=== PATIENT | female | born 1960 | race Caucasian/White ===

== ENCOUNTER 2020-03-19 07:31 | Inpatient (IN) | payer BC, MEDICAID ==
[~2020-03-19] VITALS: Ht 149.9 cm; Wt 62.5 kg
[~2020-03-19 07:31] MED LIST: ASPI-231 PO; ATEN-60 PO; CARI350T22 PO; DIAZ10TA PO; DIPH25CA2 PO; DOCU-55 PO; FENT50DI2 TD; HAL1T PO; LEV50T PO; LORA0.5T20 GT; MORP30CA16 PO; NITR1SPR TL; NOR10T PO; PRAV20TA3 PO; ROPI2TAB31 PO; SERT-274 PO; TRAZ100T3 PO; ZOLP10TA6 PO
[2020-03-19] MEDS ORDERED: SODIUM CHLORIDE 0.9% 1,000 ML IV ONE (07:44)
[2020-03-19] MEDS ORDERED: AZITHROMYCIN 500MG/ 250ML 250 ML IV ONE (07:45)
[2020-03-19] MEDS ORDERED: cefTRIAXone 1GM/50ML D5W 50 ML IV ONE (07:45)
[2020-03-19 08:22] LABS: Urine WBC None Seen /hpf (0 - 5)
[2020-03-19] MEDS ORDERED: MORPHINE SULF INJ 2 MG/ML SYRINGE 1ML ONE (08:24)
[2020-03-19] MEDS ORDERED: ONDANSETRON HCL 4 MG/2 ML VIAL ONE (08:24)
[2020-03-19] MEDS ORDERED: MORPHINE SULF INJ 2 MG/ML SYRINGE 1ML IV ONE (08:30)
[2020-03-19] MEDS ORDERED: ONDANSETRON HCL 4 MG/2 ML VIAL IV ONE (08:30)
[2020-03-19 08:35] LABS: Basophils # (auto) 0.1 10 ^3/uL (0-0.2); Basophils % (auto) 0.6 % (0.0-2.0); Eosinophils # (auto) 0.1 10 ^3/uL (0-0.8); Hemoglobin 11.3 g/dL (12.2-16.2); Lymphocytes # (auto) 1.2 10 ^3/uL (0.4-5.4); Monocytes # (auto) 0.3 10 ^3/uL (0-1.3)
[2020-03-19 08:36] LABS: Eosinophils % (auto) 1.3 % (0.0-7.0); Hematocrit 36.9 % (36.0-46.0); Mean Corpuscular Hgb Conc. 30.6 g/dL (32.0-36.0); Mean Corpuscular Volume 88.4 fL (80.0-100.0); Monocytes % (auto) 3.9 % (0.0-12.0); Neutrophils # (auto) 6.9 10 ^3/uL (1.6-8.6); Neutrophils % (auto) 80.2 % (37.0-80.0); Nucleated Red Blood Cells % 0.1 %; Platelet Count (auto) 182 10^3/uL (140-450); Red Blood Cells 4.17 10^6/uL (4.0-5.20); Red Cell Distribution Width 15.7 % (11.8-14.3); White Blood Cell 8.6 10^3/uL (4.4-10.8)
[2020-03-19 08:37] LABS: Urine Bacteria FEW /hpf (None Seen); Urine Blood Negative /uL (Negative); Urine Specific Gravity 1.006 (1.001-1.035)
[2020-03-19 08:39] LABS: INR 0.96 (0.9-1.15); Partial Thromboplastin Time 25.1 sec (23.64-32.05)
[2020-03-19 08:44] LABS: Blood Urea Nitrogen 11 mg/dL (7-18); Calcium 8.8 mg/dL (8.5-10.1); Chloride 97 mmol/L (98-107); Glucose 92 mg/dL (74-106); Potassium 4.1 mmol/L (3.5-5.1); Sodium 138 mmol/L (136-145)
[2020-03-19 08:49] LABS: Alanine Aminotransferase 6 U/L (13-56); Alkaline Phosphatase 95 U/L (45-117); Aspartate Aminotransferase 9 U/L (15-37); BUN/Creatinine Ratio 13.8; Bilirubin, Total 0.4 mg/dL (0.2-1.0); GFR African American 93 mL/min; GFR Non-African American 77 mL/min; Lactate Dehydrogenase 107 U/L (84-246)
[2020-03-19 08:55] LABS: Anion Gap -1 (5-15); Carbon Dioxide 42 mmol/L (21-32)
[2020-03-19] MEDS ORDERED: NITROGLYCERIN 0.4 MG SL TAB SL PRN (11:00)
[2020-03-19] MEDS ORDERED: MORPHINE SULF INJ 2 MG/ML SYRINGE 1ML IV PRN (11:00)
[2020-03-19] MEDS: IPRATROPIUM BROM 0.5 MG/2.5ML INH SOL NEB SCH ×3 (14:00→22:32)
[2020-03-19] MEDS: CARISOPRODOL 350 MG TAB PO SCH ×2 (14:00→22:16)
[2020-03-19] MEDS: ALBUTEROL SULF 2.5 MG/0.5ML(0.5%) NEB SOLN NEB SCH ×3 (14:00→22:32)
[2020-03-19] MEDS ORDERED: IOHEXOL 350 MG/ML 100ML IJ ONE (18:09)
[2020-03-19 18:15] VITALS: BP 92/44
[2020-03-19 20:40] VITALS: BP 98/53
--- NOTE | 2020-03-19 20:40 | NUR ---
Telemetry admit from ER JUDY SYLEEN admitted to Telemetry unit after SBAR received. Patient oriented to WILLA NAVAS, RN primary RN, unit, room, bed, and unit policies regarding patient care and visiting hours. Patient now on continuous telemetry monitoring, tele box # 17 and telemetry reading on arrival to unit is SR-[id number]'s. Patient placed on bedside 3L oxygen, weighed by bedscale and encouraged to call if they need something. All questions and concerns addressed, patient verbalized understanding. Note:
--- NOTE | 2020-03-19 20:50 | NUR ---
Home Medications, Pharmacy and Next of Kin Patient does not know her home medications nor pharmacy. Instructed patient to call family member tomorrow to obtain a list of the medications and pharmacy name. Patient does not have a next of kin, reminded patient to set up a password with family tomorrow.
[2020-03-19 22:00] VITALS: BP 98/53
[2020-03-19] MEDS: ROPINIROLE HYDROCHLORIDE 2 MG PO SCH (22:00)
[2020-03-19] MEDS: PRAVASTATIN SODIUM 20 MG TAB PO SCH (22:16)
[2020-03-19] MEDS: methylPREDNISolone SOD SUCC 40 MG/ML VL IV SCH (22:16)
[2020-03-19] MEDS: HYDROcodone-ACET 10/325MG TAB PO PRN (22:17)
[2020-03-19 22:56] VITALS: BP 91/44
[2020-03-20] MEDS: ALBUTEROL SULF 2.5 MG/0.5ML(0.5%) NEB SOLN NEB SCH ×6 (02:39→22:00)
[2020-03-20] MEDS: IPRATROPIUM BROM 0.5 MG/2.5ML INH SOL NEB SCH ×6 (02:39→22:00)
[2020-03-20 05:00] VITALS: BP 101/62
[2020-03-20] MEDS: CARISOPRODOL 350 MG TAB PO SCH ×3 (05:55→22:10)
[2020-03-20] MEDS: LEVOTHYROXINE SODIUM 50 MCG TAB PO SCH (05:55)
[2020-03-20 06:43] LABS: Basophils # (auto) 0 10 ^3/uL (0-0.2); Basophils % (auto) 0.1 % (0.0-2.0); Eosinophils # (auto) 0 10 ^3/uL (0-0.8); Hemoglobin 11.2 g/dL (12.2-16.2); Lymphocytes # (auto) 0.2 10 ^3/uL (0.4-5.4); Lymphocytes % (auto) 3.1 % (10.0-50.0); Mean Corpuscular Hemoglobin 27.6 pg (28.0-32.0); Mean Corpuscular Volume 89.2 fL (80.0-100.0); Monocytes # (auto) 0 10 ^3/uL (0-1.3); Monocytes % (auto) 0.6 % (0.0-12.0); Neutrophils # (auto) 7.6 10 ^3/uL (1.6-8.6); Neutrophils % (auto) 96.2 % (37.0-80.0); Platelet Count (auto) 156 10^3/uL (140-450); Red Blood Cells 4.04 10^6/uL (4.0-5.20); Red Cell Distribution Width 15.8 % (11.8-14.3); White Blood Cell 7.9 10^3/uL (4.4-10.8)
[2020-03-20 07:14] LABS: Potassium 4.5 mmol/L (3.5-5.1)
[2020-03-20 07:16] LABS: BUN/Creatinine Ratio 15.6; Calcium 8.9 mg/dL (8.5-10.1); Magnesium 2.5 mg/dL (1.6-2.6)
--- NOTE | 2020-03-20 07:20 | NUR ---
Respiratory note: TOOK PT OFF BIPAP AND PLACED ON 3 L NC. SPO2 93% TO EAT BREAKFAST. PT IS ALERT, ORIENTED, AND RESPONDS APPROPRIATELY TO VERBAL COMMANDS. WILL PLACE PT BACK ON BIPAP AFTER BREAKFAST.
--- NOTE | 2020-03-20 07:30 | NUR ---
Closing Note Endorsed care to dayshift nurse.
--- NOTE | 2020-03-20 07:30 | NUR ---
ROUNDS PT SITTING IN BED AWAKE A&O WITH NO C/O PAIN. RT REMOVED BPAP FOR BREAKFAST, PT PLACED ON NC. BED IN LOW POSITION, TELE IN PLACE AND CALL LIGHT IN REACH.
--- NOTE | 2020-03-20 08:15 | NUR ---
Nutrition Note: Pt consult for low BS, noted. pt with intact skin and BS 15 mod risk per RN doc. and will F/U as needed
[2020-03-20] MEDS: methylPREDNISolone SOD SUCC 40 MG/ML VL IV SCH ×2 (09:34→22:10)
[2020-03-20] MEDS: SERTRALINE HCL 50 MG TAB PO SCH (09:34)
[2020-03-20] MEDS: ASPirin-EC 81 mg tab PO SCH (09:35)
[2020-03-20] MEDS: CHOLECALCIFEROL (VITD3) 1,000UNIT=25mCg TAB PO SCH (09:35)
[2020-03-20] MEDS: ATENOLOL 25 MG TAB PO SCH (09:36)
[2020-03-20] MEDS: ZINC SULFATE 220mg CAP or TAB PO SCH (09:37)
[2020-03-20 09:39] VITALS: BP 91/53
[2020-03-20] MEDS ORDERED: AZITHROMYCIN 500MG/ 250ML 250 ML IV ONE (10:00)
[2020-03-20] MEDS ORDERED: ASCORBIC ACID 500 MG TAB PO ONE (10:00)
--- NOTE | 2020-03-20 10:22 | NUR ---
DR ROBERTO AT BEDSIDE SPEAKING WITH PT RE: HISTORY AND CONDITION
[2020-03-20 13:24] VITALS: BP 89/48
--- NOTE | 2020-03-20 14:00 | NUR ---
Respiratory note: PT TAKEN OFF BIPAP AND PLACED ON 3 L NC TO EAT LUNCH. SPO2 94%. RN DARLENE INFORMED OF CHANGES.
--- NOTE | 2020-03-20 14:09 | NUR ---
Assessment Patient is a 60-year old female who is alert and oriented. Prior admission patient lived home with family and function with assistance. Patient will return home to her prior living arrangement post discharge and she will need transportation to be arranged with [facility]. Patient informed me she has a wheelchair and home O2 for home use. Advised patient there is a Social Service consult for safety evaluation. Informed patient clinical information will be faxed to [facility]. Informed patient she has a right to participate in all discharge planning. Patient verbalized understanding and agreed to discharge plan. Per Chiara with [facility] patient has been accepted and service to start within 24-48hrs upon d/c day. Placed call to Mowing Machine Operator Diana with [facility] advising her patient has orders for home health and [facility] has accepted. Addendum: 03/20/20 at 1409 by MARCIN MAURICE Amended: Links added. Addendum: 03/20/20 at 1435 by MARCIN MAURICE obtain authorization from [facility] for [facility] [id number]
--- NOTE | 2020-03-20 14:52 | NUR ---
Respiratory note: PT IS NOT FINISHED WITH HER LUNCH. WILL CONTINUE BIPAP WHEN PT HAS COMPLETED HER MEAL. GERMANIA REID.
[2020-03-20] MEDS: ENOXAPARIN SOD 40 MG/0.4 ML SYRINGE SC SCH (16:09)
[2020-03-20 16:41] VITALS: BP 104/53
--- NOTE | 2020-03-20 17:30 | NUR ---
IV STARTED PT IV TO LEFT AC WAS PAINFUL AND LEAKING, IV REMOVED WITH CATHETER INTACT IV RESTARTED TO RIGHT UPPER ARM #22
--- NOTE | 2020-03-20 19:05 | NUR ---
RT NOTE: PT REMOVED FROM BIPAP TO EAT DINNER. PT PLACED ON 3LPM NC AND NO DISTRESS NOTED. WILL PLACE BACK ON BIPAP WHEN FINISHED EATING.
[2020-03-20 20:00] VITALS: BP 96/49
--- NOTE | 2020-03-20 20:00 | NUR ---
Opening Shift Note Assumed care of patient, awake and alert. No S/S of distress/SOB or pain. Patient eating dinner. Instructed on POC and to call for assist PRN, will continue to monitor for changes Q1hr and PRN.
--- NOTE | 2020-03-20 20:15 | NUR ---
RT NOTE: PT STILL EATING AND WANTS TO FINISH BEFORE BIPAP GOES BACK ON. 3LPM NC SPO2 94%
--- NOTE | 2020-03-20 21:00 | NUR ---
RT NOTE: ATTEMPTED TO PLACE PT BACK ON BIPAP PT STATED SHE IS STILL EATING AND NOT READY. PT ON 3LPM NC SPO2 95% WITH NO DISTRESS.
[2020-03-20 22:00] VITALS: BP 96/49
[2020-03-20] MEDS: ROPINIROLE HYDROCHLORIDE 2 MG PO SCH (22:00)
[2020-03-20] MEDS: PRAVASTATIN SODIUM 20 MG TAB PO SCH (22:10)
[2020-03-21] VITALS (7 sets, daily range): BP systolic 101–108; BP diastolic 52–74
[2020-03-21] MEDS: ALBUTEROL SULF 2.5 MG/0.5ML(0.5%) NEB SOLN NEB SCH ×6 (00:13→21:59)
[2020-03-21] MEDS: IPRATROPIUM BROM 0.5 MG/2.5ML INH SOL NEB SCH ×6 (00:13→21:59)
[2020-03-21] MEDS: HYDROcodone-ACET 10/325MG TAB PO PRN ×2 (00:41→21:52)
--- NOTE | 2020-03-21 00:41 | NUR ---
Pain Patient c/o pain 10/10 in generalized body. Pain medication administered.
--- NOTE | 2020-03-21 01:00 | NUR ---
BM Patient had a large green, soft bm, patient cleaned and changed.
--- NOTE | 2020-03-21 01:41 | NUR ---
RE Pain Patient currently sleeping, no signs of pain or distress.
--- NOTE | 2020-03-21 02:34 | NUR ---
Pain Patient c/o of pain 08/18. Patient stated to have restless leg syndrome and has not received her usual medication since she been hospitalized. [place] was administered and did not help with the pain. Page hospitalist, waiting to call back.
[2020-03-21] MEDS ORDERED: HYDROcodone-ACET 5/325MG TAB PO ONE (03:00)
[2020-03-21] MEDS: LEVOTHYROXINE SODIUM 50 MCG TAB PO SCH (05:59)
[2020-03-21] MEDS: CARISOPRODOL 350 MG TAB PO SCH ×3 (05:59→21:52)
[2020-03-21 06:53] LABS: Basophils # (auto) 0 10 ^3/uL (0-0.2); Eosinophils # (auto) 0 10 ^3/uL (0-0.8); Hematocrit 33.2 % (36.0-46.0); Hemoglobin 10.3 g/dL (12.2-16.2); Lymphocytes # (auto) 0.3 10 ^3/uL (0.4-5.4); Monocytes # (auto) 0.1 10 ^3/uL (0-1.3); White Blood Cell 11.2 10^3/uL (4.4-10.8)
[2020-03-21 06:55] LABS: Basophils % (auto) 0.1 % (0.0-2.0); Eosinophils % (auto) 0.1 % (0.0-7.0); Lymphocytes % (auto) 2.9 % (10.0-50.0); Mean Corpuscular Hemoglobin 27.3 pg (28.0-32.0); Mean Corpuscular Volume 88.1 fL (80.0-100.0); Monocytes % (auto) 1.3 % (0.0-12.0); Neutrophils # (auto) 10.7 10 ^3/uL (1.6-8.6); Neutrophils % (auto) 95.6 % (37.0-80.0); Platelet Count (auto) 171 10^3/uL (140-450); Red Blood Cells 3.77 10^6/uL (4.0-5.20); Red Cell Distribution Width 15.8 % (11.8-14.3)
[2020-03-21 07:12] LABS: Calcium 8.8 mg/dL (8.5-10.1); Magnesium 2.2 mg/dL (1.6-2.6); Potassium 4.3 mmol/L (3.5-5.1)
--- NOTE | 2020-03-21 07:30 | NUR ---
Closing Note Endorsed care to dayshift nurse.
--- NOTE | 2020-03-21 08:04 | NUR ---
Respiratory note: PT RECEIVED FROM SOFTWARE PACKAGING ENGINEER ON BIPAP B-3 PLUGGED INTO RED OUTLET. ALL BIPAP ALARMS ARE AUDIBLE, AND FUNCTIONING. PT IS WEARING A NASAL SIZE B MASK WITH NO SKIN BREAKDOWN NOTED. BS ARE CLEAR/DIMINISHED BILATERALLY. MEDNEB TX GIVEN INLINE, WITH NO ADVERSE EFFECTS NOTED. PT IS TOLERATING BIPAP WELL. WILL CONTINUE TO MONITOR PT. PT TAKEN OFF OF BIPAP, AND PLACED ON 3L NC. SPO2 98%, HR 87, RR 16, BS CLEAR BILATERALLY. PT TOLERATING CHANGE WELL. WILL CONTINUE TO MONITOR PT.
[2020-03-21] MEDS: ATENOLOL 25 MG TAB PO SCH (10:00)
--- NOTE | 2020-03-21 10:00 | NUR ---
PT C/O PAIN BUT REFUSED PAIN MEDICATION BECAUSE IT DOESN'T WORK. STATED SHE NEEDS HER ROPINIROLE.
--- NOTE | 2020-03-21 10:00 | NUR ---
PT REFUSED TO TAKE ZOLOFT AT THIS TIME. SHE STATED THAT SHE TAKES THEM AT 6 PM.
[2020-03-21] MEDS: ASPirin-EC 81 mg tab PO SCH (10:27)
[2020-03-21] MEDS: ZINC SULFATE 220mg CAP or TAB PO SCH (10:27)
[2020-03-21] MEDS: methylPREDNISolone SOD SUCC 40 MG/ML VL IV SCH ×2 (10:27→21:52)
[2020-03-21] MEDS: ENOXAPARIN SOD 40 MG/0.4 ML SYRINGE SC SCH (10:29)
[2020-03-21] MEDS: CHOLECALCIFEROL (VITD3) 1,000UNIT=25mCg TAB PO SCH (10:29)
--- NOTE | 2020-03-21 11:00 | NUR ---
MESSAGE LEFT FOR PT'S NEXT OF KIN, COREY, REGARDING PT'S HOME MEDICATION. WAITING FOR CALLBACK
--- NOTE | 2020-03-21 13:25 | NUR ---
DR GRIGGS AT BEDSIDE. MADE AWARE THAT PT'S OWN MEDICATION, ROPINOROLE, IS NOT AVAILABLE. PER PT, SHE HAD THEM WHEN SHE CAME ON THE AMBULANCE BUT THEY COULDN'T FIND IT WHEN SHE CAME TO THE ER. PT STATED IT WAS WRAPPED IN A CARRIE AND WAS PROBABLY THROWN AWAY BY THE EMT STAFF. Addendum: 03/21/20 at 1328 by Barbara Funes RN NOTE WAS FOR 1100 TODAY.
--- NOTE | 2020-03-21 14:00 | NUR ---
PT C/O PAIN BUT REFUSED PAIN MEDICATION BECAUSE IT DOESN'T WORK. GIVEN SOMA ORDERED.
--- NOTE | 2020-03-21 15:30 | NUR ---
ATTEMPTS TO CONTACT A NEXT OF KIN HAD BEEN UNSUCCESSFUL. I WAS ABLE TO SPEAK TO SOMEONE USING THE NEXT OF KIN'S RECORDED PHONE NUMBER AND I WAS INFORMED THAT IT IS A WRONG NUMBER. PER PT, IT'S THE SAME NUMBER SHE HAVE. ALSO, PER PT, HER DAUGHTER LITZY DOESN'T ANSWER HER PHONE.
--- NOTE | 2020-03-21 15:47 | NUR ---
CONTACTED PT'S PHARMACY PROVIDED BY PATIENT. SPOKE TO PHARMACIST JAI FROM [facility]. INFORMED PHARMACIST OF PT'S HOME MEDICATIONS SITUATION AND I ASKED IF HER ROPINOROLE IS DUE FOR REFILL. PER JAI, THEY WILL CALL DR MARTINEZ, PT'S PRIMARY DOCTOR AND GET AN ORDER TO HAVE IT REFILLED. PER JAI, HE WILL HAVE IT READY TODAY. I INFORMED JAI THAT I WILL TRY TO CONTACT A FAMILY MEMBER WHO CAN PICK IT UP AND BRING IT OVER TO THE HOSPITAL.
--- NOTE | 2020-03-21 16:30 | NUR ---
RECEIVED A CALL FROM PT'S DAUGHTER, LITZY. LITZY IS UPDATED ON PT'S STATUS AND PLAN OF CARE. PER LITZY, THE PT HAVE MEDICATIONS AT HOME AND SHE WILL DROP OFF THE ROPINIROLE AT THE HOSPITAL TODAY.
[2020-03-21] MEDS ORDERED: LORazepam 2MG/ML-1ML VIAL IV PRN (18:15)
[2020-03-21] MEDS: SERTRALINE HCL 50 MG TAB PO SCH (18:51)
[2020-03-21] MEDS: ROPINIROLE HYDROCHLORIDE 2 MG PO SCH (18:51)
--- NOTE | 2020-03-21 18:54 | NUR ---
POM ROPINIROLE RECEIVED FROM PT'S DAUGHTER. PER PT, SHE NEEDS TO TAKE ONE NOW SINCE SHE HASN'T HAD IT SINCE ADMISSION. MEDICATION GIVEN.
--- NOTE | 2020-03-21 19:20 | NUR ---
Opening Shift Note Assumed care of patient, awake and alert. No S/S of distress/SOB or pain. Patient eating dinner at the moment. Instructed on POC and to call for assist PRN, will continue to monitor for changes Q1hr and PRN.
[2020-03-21 19:28] LABS: % Iron Saturation 10.8 % (15-50)
[2020-03-21 19:40] LABS: Ferritin 74.1 ng/mL (10-322)
[2020-03-21 19:41] LABS: Folate (Folic Acid) 6.73 ng/mL (5.38-24)
--- NOTE | 2020-03-21 21:50 | NUR ---
Pain Patient c/o pain 10/10 throughout her body, pain medication administered.
[2020-03-21] MEDS: PRAVASTATIN SODIUM 20 MG TAB PO SCH (21:52)
--- NOTE | 2020-03-21 22:52 | NUR ---
RE Pain Patient is currently sleeping
[2020-03-22] MEDS: ALBUTEROL SULF 2.5 MG/0.5ML(0.5%) NEB SOLN NEB SCH ×6 (02:33→23:05)
[2020-03-22] MEDS: IPRATROPIUM BROM 0.5 MG/2.5ML INH SOL NEB SCH ×6 (02:33→23:05)
[2020-03-22 05:56] VITALS: BP 130/63
[2020-03-22] MEDS: CARISOPRODOL 350 MG TAB PO SCH ×3 (06:02→21:59)
[2020-03-22] MEDS: LEVOTHYROXINE SODIUM 50 MCG TAB PO SCH (06:02)
[2020-03-22 06:27] LABS: Basophils # (auto) 0 10 ^3/uL (0-0.2); Basophils % (auto) 0.1 % (0.0-2.0); Eosinophils # (auto) 0 10 ^3/uL (0-0.8); Hematocrit 33.6 % (36.0-46.0); Hemoglobin 10.7 g/dL (12.2-16.2); Lymphocytes # (auto) 0.3 10 ^3/uL (0.4-5.4); Lymphocytes % (auto) 3.1 % (10.0-50.0); Mean Corpuscular Hemoglobin 27.7 pg (28.0-32.0); Mean Corpuscular Hgb Conc. 31.7 g/dL (32.0-36.0); Mean Corpuscular Volume 87.4 fL (80.0-100.0); Monocytes # (auto) 0.2 10 ^3/uL (0-1.3); Neutrophils # (auto) 8.9 10 ^3/uL (1.6-8.6); Neutrophils % (auto) 94.8 % (37.0-80.0); Platelet Count (auto) 184 10^3/uL (140-450); Red Blood Cells 3.85 10^6/uL (4.0-5.20); Red Cell Distribution Width 15.9 % (11.8-14.3); White Blood Cell 9.4 10^3/uL (4.4-10.8)
[2020-03-22 06:43] LABS: BUN/Creatinine Ratio 25.6; Calcium 8.6 mg/dL (8.5-10.1); Magnesium 2.4 mg/dL (1.6-2.6); Potassium 4.4 mmol/L (3.5-5.1)
--- NOTE | 2020-03-22 07:16 | NUR ---
Closing Note Endorsed care to dayshift nurse.
[2020-03-22 08:00] VITALS: BP 112/64
--- NOTE | 2020-03-22 08:00 | NUR ---
OPENING SHIFT NOTE ASSUMED CARE OF PATIENT AWAKE AND ALERT. NO S/S OF DISTRESS NOTED OR SOB. PATIENT IS ON 2L NC PER MD ORDER WITH AN O2 SATURATION OF 95%. PATIENT UPDATED ON POC FOR THE DAY AND ALL QUESTIONS ANSWERED. BED IS IN LOWEST, LOCKED POSITION WITH SIDE RAILS UP X2 AND CALL LIGHT WITHIN REACH. WILL CONTINUE TO MONITOR Q1H AND PRN.
[2020-03-22] MEDS: methylPREDNISolone SOD SUCC 40 MG/ML VL IV SCH ×2 (09:14→21:59)
[2020-03-22] MEDS: ENOXAPARIN SOD 40 MG/0.4 ML SYRINGE SC SCH (09:14)
[2020-03-22] MEDS: CHOLECALCIFEROL (VITD3) 1,000UNIT=25mCg TAB PO SCH (09:15)
[2020-03-22] MEDS: ASPirin-EC 81 mg tab PO SCH (09:15)
[2020-03-22] MEDS: HYDROcodone-ACET 10/325MG TAB PO PRN (09:15)
[2020-03-22] MEDS: ATENOLOL 25 MG TAB PO SCH (09:15)
[2020-03-22] MEDS: ZINC SULFATE 220mg CAP or TAB PO SCH (09:16)
--- NOTE | 2020-03-22 10:15 | NUR ---
MD AT BEDSIDE DR GRIGGS AT BEDSIDE UPDATED PATIENT ON POC. PATIENT VERBALIZED UNDERSTANDING
[2020-03-22] MEDS ORDERED: MORPHINE SULF 15mg ER tab PO PRN (10:30)
[2020-03-22] MEDS: MORPHINE SULF 15mg ER tab PO SCH ×2 (11:44→22:00)
[2020-03-22 12:00] VITALS: BP 125/80
--- NOTE | 2020-03-22 12:00 | NUR ---
Nutrition Assessment Notes Please refer to link for full assessment notes. Est Energy needs: 2176-7521 kcals (20-23 kcal/kgBW) Est Protein needs: 49-61 gms/day (0.8-1.0 gm/kgBW) Will continue to monitor and reassess prn. Addendum: 03/22/20 at [address] Amended: Links added.
--- NOTE | 2020-03-22 13:50 | NUR ---
MRI PATIENT TAKEN DOWN TO MRI VIA STRETCHER CONNECTED TO 2L NC. NO INJURY OR DISTRESS NOTED AT TIME OF DEPARTURE.
[2020-03-22 15:44] VITALS: BP 125/80
[2020-03-22 16:57] VITALS: BP 129/71
--- NOTE | 2020-03-22 17:19 | NUR ---
FAMILY FOUND PATIENT IN HER ROOM CRYING. SHE STATES HER SON CALLED HER AND INFORMED HER SHE NEEDS TO GO TO REHAB AND LEARN HOW TO WALK AGAIN BEFORE SHE CAN COME HOME AND THAT HOSPICE IS NOT AN OPTION. I CALLED CHEY AT TO SPEAK WITH HIM ABOUT THIS. ACCORDING TO CHEY THEY HAVE NO WAY OF TAKING CARE OF HER 01/06 AND HOSPICE IS NOT ENOUGH HELP. INFORMED HIM THAT PATIENT HAS A RIGHT TO RETURN TO HER HOME IF SHE WANTS. WILL NOTIFY MD THAT PATIENT AND FAMILY WOULD LIKE TO REDISCUSS DISCHARGE OPTIONS.
[2020-03-22] MEDS: SERTRALINE HCL 50 MG TAB PO SCH (18:04)
--- NOTE | 2020-03-22 19:19 | NUR ---
RT NOTE PT WAS SEEN BY RT FOR HHN TX. PT TOLERATES WELL VIA MASK. NO ADVERSE REACTION NOTED. PT HAS A BIPAP AT BEDSIDE. PT IS ON BEDSIDE POX. CONT ORDERED Addendum: 03/22/20 at 1920 by Kelly Poon RT Amended: Links added.
[2020-03-22] MEDS ORDERED: LORazepam 2MG/ML-1ML VIAL IV PRN (20:15)
[2020-03-22] MEDS: HALOPERIDOL 1 MG TAB PO PRN (20:53)
[2020-03-22] MEDS: PRAVASTATIN SODIUM 20 MG TAB PO SCH (21:59)
[2020-03-22] MEDS: ROPINIROLE HYDROCHLORIDE 2 MG PO SCH (21:59)
[2020-03-22 22:00] VITALS: BP 138/72
--- NOTE | 2020-03-22 23:05 | NUR ---
RT NOTE PT WAS SEEN BY RT FOR HHN TX. PT TOLERATES WELL VIA MASK. NO ADVERSE REACTION NOTED. CONT ORDERED Addendum: 03/22/20 at 2315 by Kelly Poon RT Amended: Links added.
--- NOTE | 2020-03-22 23:25 | NUR ---
IV insertion IV access obtained, via clean sterile technique by inserting 22 gauge catheter at right hand after 1 attempt. IV secured properly. No trauma to site. Patient tolerated procedure well.
[2020-03-23] MEDS: ALBUTEROL SULF 2.5 MG/0.5ML(0.5%) NEB SOLN NEB SCH ×6 (02:37→22:18)
[2020-03-23] MEDS: IPRATROPIUM BROM 0.5 MG/2.5ML INH SOL NEB SCH ×6 (02:37→22:18)
--- NOTE | 2020-03-23 02:39 | NUR ---
RT NOTE PT WAS SEEN BY RT FOR HHN TX. PT TOLERATES WELL VIA MASK. NO ADVERSE REACTION NOTED .CONT ORDERED Addendum: 03/23/20 at 0240 by Kelly Poon RT Amended: Links added.
[2020-03-23] MEDS: HALOPERIDOL 1 MG TAB PO PRN (02:52)
[2020-03-23] MEDS: HYDROcodone-ACET 10/325MG TAB PO PRN (04:15)
[2020-03-23 05:00] VITALS: BP 106/65
[2020-03-23] MEDS: CARISOPRODOL 350 MG TAB PO SCH ×3 (06:09→21:31)
[2020-03-23] MEDS: LEVOTHYROXINE SODIUM 50 MCG TAB PO SCH (06:40)
--- NOTE | 2020-03-23 07:30 | NUR ---
Opening Shift Note Report received and assumed care of patient, awake and alert. No S/S of distress/SOB,c/o chronic pain but explain to patient not due for pain medication at this time.Noted to have restless legs,Patient eating breakfast. Instructed on POC and nursing routines,call light within reach patient reminded instructed to call for assistance,patient verbalized understanding.will continue to monitor for changes Q1hr and PRN.
--- NOTE | 2020-03-23 08:50 | NUR ---
CALLED DR. GRIGGS CALLED RECEIVED ORDER FOR ABG ON 2 LITERS NASAL CANNULA AND PROVIDE AND INSTRUCT PATIENT TO USE INCENTIVE SPIROMETRY.
[2020-03-23 09:00] VITALS: BP 128/68
--- NOTE | 2020-03-23 09:45 | NUR ---
DR. GRIGGS HERE,ABG AT 2 LITERS NASAL CANNULA RESULT GIVEN TO
[2020-03-23] MEDS: methylPREDNISolone SOD SUCC 40 MG/ML VL IV SCH ×2 (10:09→21:30)
[2020-03-23] MEDS: CHOLECALCIFEROL (VITD3) 1,000UNIT=25mCg TAB PO SCH (10:09)
[2020-03-23] MEDS: MORPHINE SULF 15mg ER tab PO SCH ×2 (10:10→21:31)
[2020-03-23] MEDS: ASPirin-EC 81 mg tab PO SCH (10:10)
[2020-03-23] MEDS: ZINC SULFATE 220mg CAP or TAB PO SCH (10:10)
[2020-03-23] MEDS: ROPINIROLE HYDROCHLORIDE 2 MG PO SCH ×2 (10:11→21:30)
[2020-03-23] MEDS: ENOXAPARIN SOD 40 MG/0.4 ML SYRINGE SC SCH (10:11)
[2020-03-23] MEDS: ATENOLOL 25 MG TAB PO SCH (10:14)
--- NOTE | 2020-03-23 10:25 | NUR ---
PHYSICAL THERAPY AT BEDSIDE, PATIENT REFUSED TREATMENT AT THIS TIME.
--- NOTE | 2020-03-23 10:25 | NUR ---
RECEIVED CALL FROM [facility],INFORMED DR. GRIGGS HERE TO SEE PATIENT,NO ORDERS RECEIVED YET AT THIS TIME, INFORMED MD SPOKE TO [facility] GRAVURE PRINTING MACHINIST RE DISCHARGE.
--- NOTE | 2020-03-23 10:40 | NUR ---
RECEIVED ORDER FROM DR. GRIGGS TO DISCHARGE PATIENT WITH HOSPICE TO RESIDENTIAL CARE, STATED ALREADY SPOKE TO LITZY PATIENT DAUGHTER
--- NOTE | 2020-03-23 12:10 | NUR ---
RECEIVED ORDER FROM DR. GRIGGS TO REMOVED MEEKS CATHETER
[2020-03-23] MEDS: levoFLOXacin 500 MG TAB PO SCH (12:11)
--- NOTE | 2020-03-23 12:30 | NUR ---
MEEKS CATHETER REMOVED
[2020-03-23 14:00] VITALS: BP 119/69
--- NOTE | 2020-03-23 15:30 | NUR ---
Spoke to Leeanne Martin Serviced re discharge with Hosp[facility] to [facility] Term [facility],stated have not heard or received call from [facility] yet.
--- NOTE | 2020-03-23 15:30 | NUR ---
patient voided without difficulty
--- NOTE | 2020-03-23 15:48 | NUR ---
D/C planning Per SS consult for hospice with placement. Information and choice letter was given to patient. Patient requested [facility] stating she was on service with them in the past. Faxed clinical information to [facility]. Per Roxanne with hospice Ph:) or Ph:( [phone]) patient has been accepted and they are working on placement possible tomorrow Thursday or Thursday. Informed RN Swati peters is working on placement. Notify AILYN II Lorrie.
--- NOTE | 2020-03-23 15:50 | NUR ---
Ly Robb called stated [facility] still working on placement possible discharge tomorrow Thursday,Thursday or Thursday
[2020-03-23 16:56] VITALS: BP 120/61
[2020-03-23] MEDS: SERTRALINE HCL 50 MG TAB PO SCH (17:36)
--- NOTE | 2020-03-23 19:08 | NUR ---
STATUS UNCHANGED, NO DISTRESS ,NO DISCOMFORT RESTING QUIETLY.
--- NOTE | 2020-03-23 19:20 | NUR ---
Opening Shift Note Assumed care of patient, awake and alert. No S/S of distress/SOB or pain. Instructed on POC and to call for assist PRN. Bed in lowest locked position, call light within reach, side rails up x2, fall precautions in place. Will continue to monitor for changes Q1hr and PRN.
[2020-03-23] MEDS: PRAVASTATIN SODIUM 20 MG TAB PO SCH (21:31)
[2020-03-23 21:58] VITALS: BP 128/68
[2020-03-24] MEDS: HYDROcodone-ACET 10/325MG TAB PO PRN ×2 (01:24→08:57)
[2020-03-24] MEDS: ALBUTEROL SULF 2.5 MG/0.5ML(0.5%) NEB SOLN NEB SCH ×6 (02:00→21:50)
[2020-03-24] MEDS: IPRATROPIUM BROM 0.5 MG/2.5ML INH SOL NEB SCH ×6 (02:00→21:50)
[2020-03-24 05:03] VITALS: BP 145/75
[2020-03-24] MEDS: CARISOPRODOL 350 MG TAB PO SCH ×3 (06:05→21:46)
[2020-03-24] MEDS: LEVOTHYROXINE SODIUM 50 MCG TAB PO SCH (06:06)
--- NOTE | 2020-03-24 07:30 | NUR ---
RECEIVED REPORT FROM NIGHT NURSE. PATIENT RESTING IN BED, NO DISTRESS NOTED. WILL CONTINUE TO MONITOR.
--- NOTE | 2020-03-24 08:59 | NUR ---
D/C PLANNING SPOKE WITH PATIENT ABOUT D/C PLANNING. PATIENT STATES THAT SHE WILL DO WHATEVER SHE HAS TO TO LEAVE HERE. PATIENT STATES THAT SHE WILL GO TO A FACILITY, SINCE SHE DOESN'T HAVE ANYONE TO TAKE CARE OF HER AT HOME.
[2020-03-24 09:00] VITALS: BP 109/56
[2020-03-24] MEDS: ROPINIROLE HYDROCHLORIDE 2 MG PO SCH ×2 (10:00→21:41)
[2020-03-24] MEDS: methylPREDNISolone SOD SUCC 40 MG/ML VL IV SCH ×2 (10:09→21:40)
[2020-03-24] MEDS: ENOXAPARIN SOD 40 MG/0.4 ML SYRINGE SC SCH (10:09)
[2020-03-24] MEDS: ASPirin-EC 81 mg tab PO SCH (10:10)
[2020-03-24] MEDS: MORPHINE SULF 15mg ER tab PO SCH ×2 (10:10→21:45)
[2020-03-24] MEDS: CHOLECALCIFEROL (VITD3) 1,000UNIT=25mCg TAB PO SCH (10:10)
[2020-03-24] MEDS: levoFLOXacin 500 MG TAB PO SCH (10:11)
[2020-03-24] MEDS: ATENOLOL 25 MG TAB PO SCH (10:11)
[2020-03-24] MEDS: ZINC SULFATE 220mg CAP or TAB PO SCH (10:12)
[2020-03-24 14:00] VITALS: BP 126/71
--- NOTE | 2020-03-24 16:16 | NUR ---
PLACED CALL TO DOCTOR INDU, HE INFORMED ME THAT DR. ALVA IS ON FOR THAT PATIENT TODAY. CALLED AND LEFT A MESSAGE FOR DR. ALVA REGARDING NAUSEA MEDS FOR PATIENT. WILL WAIT FOR CALL BACK.
--- NOTE | 2020-03-24 16:19 | NUR ---
SPOKE WITH DOCTOR ALVA, ORDERS RECEIVED, WILL PLACE AND CARRY OUT.
[2020-03-24] MEDS ORDERED: PROMETHAZINE HCL 25 MG/ML 1ML IV PRN (16:30)
[2020-03-24 17:00] VITALS: BP 158/89
--- NOTE | 2020-03-24 17:39 | NUR ---
CODE ASSIST PATIENT BECOMING CONFUSED, HARD TO AROUSE, NOT ANSWERING QUESTIONS, NOTICEABLE SHAKING. VITALS SHOWING O2 SATS IN THE 70'S, HR, BP NORMAL. CODE ASSIST CALLED. HOUSE SUP, CHARGE NURSE, RT AT BEDSIDE. SEE CODE SHEET.
--- NOTE | 2020-03-24 17:58 | NUR ---
SPOKE WITH DOCTOR ALVA, ORDERS RECEIVED, WILL PLACE AND CARRY OUT.
[2020-03-24] MEDS ORDERED: LORazepam 2MG/ML-1ML VIAL IM ONE (18:00)
[2020-03-24] MEDS ORDERED: ONDANSETRON HCL 4 MG/2 ML VIAL IV PRN (18:00)
[2020-03-24] MEDS: SERTRALINE HCL 50 MG TAB PO SCH (18:00)
[2020-03-24] MEDS ORDERED: LORazepam 2MG/ML-1ML VIAL IV ONE (18:15)
--- NOTE | 2020-03-24 18:15 | NUR ---
MEDICATION GIVEN. SHAKING STOPPED. PATIENT RESTING IN BED, EYES CLOSED. BREATHING EVEN AND UNLABORED. VITALS STABLE, WILL CONTINUE TO MONITOR.
--- NOTE | 2020-03-24 18:29 | NUR ---
Respiratory note: PLACED PT ON 3LNC POST MED NEB
--- NOTE | 2020-03-24 18:45 | NUR ---
PATIENT MOVED TO ROOM 217A WITH SITTER AT BEDSIDE. ALL BELONGINGS TAKEN WITH PATIENT. PATIENT ON 3L NASAL CANNULA.
--- NOTE | 2020-03-24 19:10 | NUR ---
Opening note Assumed care of patient. Patient alert and orientated x1. Chest rising. No SOB or distress noted. Bed in lowest position and locked. POC reviewed. Sitter at bedside. Call light within reach. Will continue to monitor. Addendum: 03/25/20 at 0303 by SUPRIYA MACK RN RN Disregard note Assumed care of patient. Patient lethargic and arousable only to painful stimuli. Chest rising. No SOB or distress noted. HR 75. Oxygen saturating at 92% on 2l nasal canula. Bed in lowest position and locked. Side rails up x2. Sitter at bedside. Call light within reach. Will continue to monitor.
--- NOTE | 2020-03-24 21:30 | NUR ---
Patient awake Patient awake and alert x1 to self. Patient is confused only able to stated name. Oxygen saturation 94% on 2L nasal canula. Heart Rate 82. No SOB Or distress noted at this time. Sitter still at bedside for patient safety. Will continue to monitor.
[2020-03-24] MEDS: PRAVASTATIN SODIUM 20 MG TAB PO SCH (21:40)
[2020-03-24 22:00] VITALS: BP 108/54
--- NOTE | 2020-03-24 22:15 | NUR ---
Bloody nose Patient has a bloody nose. Found picking her nose. Found with Blood was on her face. Cleaned patients face. No more visible blood. Patient is still confused, Oxygen down to 85% patient put on 6L nasal canula. Oxygen up to 93%. Put mittens on patient for her safety. Patient no longer picking nose. Will titrate down to 2L nasal canula. Sitter at bedside. Will continue to monitor.
--- NOTE | 2020-03-25 | NUR ---
Titrated oxygen Titrated oxygen to 5L nasal canula Oxygen saturation at 96%. No distress noted. Will continue to monitor.
--- NOTE | 2020-03-25 02:00 | NUR ---
Titrated oxygen titrated oxygen to 4L nasal canula. No SOB or distress noted. Oxygen saturation at 96%. will continue to monitor.
[2020-03-25] MEDS: ALBUTEROL SULF 2.5 MG/0.5ML(0.5%) NEB SOLN NEB SCH ×4 (02:22→14:18)
[2020-03-25] MEDS: IPRATROPIUM BROM 0.5 MG/2.5ML INH SOL NEB SCH ×4 (02:22→14:18)
--- NOTE | 2020-03-25 03:20 | NUR ---
titrated oxygen Titrated oxygen to 3L nasal canula. No SOB or distress noted. Oxygen saturation at 95%. Will continue to monitor.
--- NOTE | 2020-03-25 03:30 | NUR ---
Mentation change. Patient alert and orientated x3, Self, place, situation. HR 85. Oxygen saturation at 92% on 3L nasal canula. Will continue to monitor.
[2020-03-25] MEDS: HYDROcodone-ACET 10/325MG TAB PO PRN ×2 (03:33→20:12)
--- NOTE | 2020-03-25 03:33 | NUR ---
Pain Patient stated in 10/10 pain to entire body. Offered Eola per PRN. Patient stated she would take the Eola. Will reassess pain in 1 hr. Will continue to monitor patient.
--- NOTE | 2020-03-25 04:33 | NUR ---
Pain reassessment Reassessed patient. Patient states still at a 10/10 pain on entire body. Informed patient will medicate with soma per orders and will page MD for further pain medications. Instructed patient on relaxation techniques. Will continue to monitor.
[2020-03-25] MEDS: CARISOPRODOL 350 MG TAB PO SCH ×3 (05:34→22:52)
[2020-03-25 06:00] VITALS: BP 107/57
--- NOTE | 2020-03-25 06:59 | NUR ---
spoke to md Called DR farrar. Patient is having pain 10/10 entire body. Doc ordered 2 mg morphine sulfate IV once. Doctor states to allow day shift doctor to follow up on any more pain medication. Will carry out orders. Will continue to monitor.
[2020-03-25] MEDS ORDERED: MORPHINE SULF INJ 2 MG/ML SYRINGE 1ML IV ONE (07:00)
--- NOTE | 2020-03-25 07:25 | NUR ---
Pain med given Medicated patient with one time order of 2 mg IV Morphine sulfate. Per doctors orders. Patient states pain 10/10 entire body.
[2020-03-25] MEDS: LEVOTHYROXINE SODIUM 50 MCG TAB PO SCH (07:26)
--- NOTE | 2020-03-25 07:30 | NUR ---
Opening Shift Note Assumed care of patient, awake and alert. No S/S of distress/SOB or pain. Bed is low, locked with 2x side rails up. Call light is within reach. ride attendant at bedside. Instructed on POC and to call for assist PRN, will continue to monitor for changes Q1hr and PRN.
--- NOTE | 2020-03-25 07:36 | NUR ---
Closing note. Patient alert and orientated x4. No SOB or distress noted. Endorsed care to day shift RN.
[2020-03-25] MEDS: ATENOLOL 25 MG TAB PO SCH (10:00)
[2020-03-25] MEDS: ASPirin-EC 81 mg tab PO SCH (10:15)
[2020-03-25] MEDS: levoFLOXacin 500 MG TAB PO SCH (10:15)
[2020-03-25] MEDS: MORPHINE SULF 15mg ER tab PO SCH ×2 (10:15→22:50)
[2020-03-25] MEDS: ZINC SULFATE 220mg CAP or TAB PO SCH (10:17)
[2020-03-25] MEDS: methylPREDNISolone SOD SUCC 40 MG/ML VL IV SCH (10:18)
[2020-03-25] MEDS: ROPINIROLE HYDROCHLORIDE 2 MG PO SCH ×2 (10:18→22:49)
[2020-03-25] MEDS: CHOLECALCIFEROL (VITD3) 1,000UNIT=25mCg TAB PO SCH (10:18)
[2020-03-25] MEDS: ENOXAPARIN SOD 40 MG/0.4 ML SYRINGE SC SCH (10:19)
[2020-03-25 10:57] VITALS: BP 107/57
--- NOTE | 2020-03-25 11:02 | NUR ---
Nutrition Followup Notes Wt: 62.5 kg Pt was awake in pain with no family by bedside. per records pt with COPD exacerbation. pt is currently on 2 gm na diet with adequate PO of 75% x 4 per RN doc Est Energy needs: 1758-9537 kcals (20-23 kcal/kgBW), Est Protein needs: 49-61 gms/day (0.8-1.0 gm/kgBW). Will continue to monitor and reassess prn. LABS: BUN 20 H, GLU 153 H, CO2 37 H GI: Pt had 1 BM today per RN doc BS: 14 mod risk skin intact per RN doc PES: Altered nutrition related lab values r/t current/chronic medical condition aeb mod hypoalbuminemia Comments Will continue to closely monitor pertinent labs, PO intake and skin status prn. Will followup in 3-5 days 1) Continue to closely monitor pt PO intake to meet at least 75% of meals. 2) Continue current plan of care
--- NOTE | 2020-03-25 13:46 | NUR ---
Patient refused PT. GERMANIA Tiesha was notified. Addendum: 03/25/20 at 1346 by CRISTÓBAL HANKS PTT Amended: Links added.
--- NOTE | 2020-03-25 14:50 | NUR ---
IV insertion IV access obtained, via clean sterile technique by inserting a 22 gauge catheter to the left wrist/FA after 3 attempt(s). IV secured properly. No trauma to site. Patient tolerated well. IV to L hand DC'd with clean sterile technique, catheter fully intact. Pressure dressing applied to site. Patient tolerated well.
[2020-03-25] MEDS ORDERED: IPRATROPIUM BROM 0.5 MG/2.5ML INH SOL NEB PRN (15:15)
[2020-03-25] MEDS ORDERED: ALBUTEROL SULF 2.5 MG/0.5ML(0.5%) NEB SOLN NEB PRN (15:15)
[2020-03-25] MEDS: SERTRALINE HCL 50 MG TAB PO SCH (17:54)
--- NOTE | 2020-03-25 19:20 | NUR ---
opening note pt A&O to name. respirations are even and nonlabored on 3L nc. sitter is at bedside. POC discussed with pt. bed in low locked position, call light within reach.
--- NOTE | 2020-03-25 20:05 | NUR ---
pain c/o generalized pain, 08/18. pt will be medicated appropriately.
[2020-03-25] MEDS: PRAVASTATIN SODIUM 20 MG TAB PO SCH (22:51)
--- NOTE | 2020-03-26 04:44 | NUR ---
pain pt c/o generalized pain, a rating of 10/10. pt will be medicated appropriately.
[2020-03-26] MEDS: HYDROcodone-ACET 10/325MG TAB PO PRN ×2 (04:54→13:05)
[2020-03-26] MEDS: CARISOPRODOL 350 MG TAB PO SCH ×2 (06:25→14:00)
[2020-03-26] MEDS: LEVOTHYROXINE SODIUM 50 MCG TAB PO SCH (06:25)
--- NOTE | 2020-03-26 07:15 | NUR ---
closing note pt resting in semi fowlers with HOB at 30 degrees. sitter at bedside. respirations even and nonlabored on 3Lnc. endorsed care to GERMANIA Garcia.
--- NOTE | 2020-03-26 07:30 | NUR ---
Opening Shift Note Assumed care of patient, awake, and lying supine in bed. Sitter is at bedside for 24 hour patient care and safety. No S/S of distress/SOB but patient reporting pain of 10/10 generalized through her body. Instructed on POC and to call for assist PRN, and patient verbalized understanding to the best of her ability. Will continue to monitor for changes Q1hr and PRN.
[2020-03-26] MEDS: ASPirin-EC 81 mg tab PO SCH (09:43)
[2020-03-26] MEDS: levoFLOXacin 500 MG TAB PO SCH (09:43)
[2020-03-26] MEDS: ZINC SULFATE 220mg CAP or TAB PO SCH (09:43)
[2020-03-26] MEDS: MORPHINE SULF 15mg ER tab PO SCH (09:44)
[2020-03-26] MEDS: ENOXAPARIN SOD 40 MG/0.4 ML SYRINGE SC SCH (09:44)
[2020-03-26] MEDS: CHOLECALCIFEROL (VITD3) 1,000UNIT=25mCg TAB PO SCH (09:44)
[2020-03-26] MEDS: ATENOLOL 25 MG TAB PO SCH (09:50)
[2020-03-26] MEDS: ROPINIROLE HYDROCHLORIDE 2 MG PO SCH (09:50)
[2020-03-26] MEDS ORDERED: predniSONE 20 MG TAB PO SCH (10:00)
--- NOTE | 2020-03-26 11:00 | NUR ---
Respiratory note: PT ASSESSED FOR PRN MEDNEB TX. PT IN NO RESPIRATORY DISTRESS. SPO2 93% ON 3L NC HR 67 RR 16 B/S DIMINISHED. PT AWARE TO HAVE RT PAGED IF THEY BECOME SOB.
--- NOTE | 2020-03-26 15:34 | NUR ---
D/C Planning Received a call from ATUL Ortiz with [facility] medical group this morning advising me [facility] was unable to find placement asking if we can assist with placement then I received a second call from ATUL Ortiz informing me [facility] found placement in [facility]. Informed patient regarding placement. Patient stated she would like to be placed local and then ask me to speak to her daughter Gillian ) to informed her of discharge plan. Spoke to Gillian regarding placement in [place] per Gillian she would like patient to be placed local as well. Order was redirected to Ginny with [facility] who will assist with placement. Per Ginny patient has been accepted to [facility] home [place] ). Per Ginny [facility] can follow patient at [facility] if patient agrees. Patient and daughter Gillian verbalize understanding d/c plan. Placed follow up call to Roxanne with [facility] ) advising her patient would like their service. Per Roxanne they can follow patient at [facility]. Transportation has been arranged with [employer] transport ) between 18:30-19:00 via [employer]. Informed GERMANIA Nielsen covering bedside nurse.
[2020-03-26 16:20] VITALS: BP 105/57
--- NOTE | 2020-03-26 16:33 | NUR ---
Discharge order received; patient will be transferred [facility] a hosp[facility] pickup time is [id number].
[2020-03-26] MEDS: SERTRALINE HCL 50 MG TAB PO SCH (18:00)
--- NOTE | 2020-03-26 18:19 | NUR ---
Transport picked up patient at 1800; no distress at time of departure, patient taken to transport vehicle via gurney along with all personal belongings.
== END 2020-03-26 19:00 | disposition hospice, home (50) | DRG 189 ==
LOC: ER 07:31 → EDBD 07:31 → TELE 07:32 → TELE-CENTR 20:10
PROVIDERS: ADMIT Internal Medicine; ATTEND Internal Medicine
PROC: 5A09357 Assistance with Respiratory Ventilation, Less than 24 Consecutive Hours, Continuous Positive Airway Pressure (ICD-10-PCS; principal; 2020-03-19)
PROC: 5A09357 Assistance with Respiratory Ventilation, Less than 24 Consecutive Hours, Continuous Positive Airway Pressure (ICD-10-PCS; 2020-03-20)
PROC: 5A09357 Assistance with Respiratory Ventilation, Less than 24 Consecutive Hours, Continuous Positive Airway Pressure (ICD-10-PCS; 2020-03-21)
PROC: 5A09357 Assistance with Respiratory Ventilation, Less than 24 Consecutive Hours, Continuous Positive Airway Pressure (ICD-10-PCS; 2020-03-22)
DX: J96.22 Acute and chronic respiratory failure with hypercapnia (principal); J44.1 Chronic obstructive pulmonary disease with (acute) exacerbation; J96.21 Acute and chronic respiratory failure with hypoxia; Z74.01 Bed confinement status; G47.30 Sleep apnea, unspecified; G20 Parkinson's disease; F51.04 Psychophysiologic insomnia; I10 Essential (primary) hypertension; G25.81 Restless legs syndrome; G89.29 Other chronic pain; T40.605A Adverse effect of unspecified narcotics, initial encounter; T42.6X5A Adverse effect of other antiepileptic and sedative-hypnotic drugs, initial encounter; M54.5 Low back pain; Y92.89 Other specified places as the place of occurrence of the external cause; Z82.5 Family history of asthma and other chronic lower respiratory diseases; Z83.3 Family history of diabetes mellitus; Z85.850 Personal history of malignant neoplasm of thyroid; I25.2 Old myocardial infarction; Z03.818 Encounter for observation for suspected exposure to other biological agents ruled out
CPT/HCPCS: 36415; 36600; 70551; 71045; 71275; 72146; 72148; 80048; 80053; 81001; 82607; 82728; 82746; 82805; 82962; 83036; 83540; 83550; 83615; 83735; 83880; 84155; 84165; 84443; 84484; 85025; 85048; 85610; 85730; 87040; 87045; 87070; 87427; 87804; 87880; 93005; 93970; 94640; 94660; 97110; 97163; 97530; 99291; G0378; J0696; J2405